=== PATIENT | female | born 1995 | race Two or more races ===

== ENCOUNTER 2025-01-24 13:45 | Inpatient (IN) | payer OTHER ==
[~2025-01-24] VITALS: Ht 167.6 cm; Wt 79.8 kg
[2025-02-09 08:00] VITALS: BP 117/75
[2025-02-09] MEDS ORDERED: PRENATABS FA T1 EACH PO (08:11)
[2025-02-09] MEDS ORDERED: OXYTOCIN 500 ML IV SCH (08:15)
[2025-02-09] MEDS ORDERED: RINGERS SOLUTION,LACTATED 1,000 ML IV SCH (08:15)
[2025-02-09 08:49] LABS: BASO % 0.4 % (0.1-1.2); EOS # 0.05 (0.04-0.54); EOS % 0.4 % (0.7-7.0); LYMPH # 2.60 (1.18-3.74); LYMPH % 22.5 % (19.3-53.1); MEAN PLATELET VOLUME 11.30 fl (9.4-12.4); MONO # 1.12 (0.24-0.82); MONO % 9.7 % (4.7-12.5); NEUT # 7.61 (1.56-6.13); NEUT % 66.1 % (34.0-71.1); RED CELL DISTRIBUTION WIDTH 12.7 % (11.6-14.4)
[2025-02-09 09:12] LABS: INR 0.96
[2025-02-09 09:17] LABS: ALT/SGPT 15.0 U/L (12-78); AST/SGOT 24.0 U/L (15-37); BILIRUBIN TOTAL 0.58 mg/dL (0.3-1.2); BUN CREA RATIO 13.0 (7.0-25.0); CREATININE SERUM 0.53 mg/dL (0.55-1.02); GFR 134.55; GLOBULINA 3.7 G/DL (2.4-3.5); GLUCOSE FASTING 76.0 mg/dL (65-100); OSMOLALITY SERUM 276.0 MOSM/KG (275-295)
[2025-02-09 11:40] VITALS: BP 121/71
[2025-02-09] MEDS ORDERED: MORPHINE SULFATE 4 MG/ML CARTRIDGE IV ONE (15:30)
[2025-02-09 15:38] VITALS: BP 116/50
[2025-02-09] MEDS ORDERED: OXYTOCIN 10 UNITS/ML VIAL ONE (19:36)
[2025-02-09] MEDS ORDERED: ERYTHROMYCIN BASE OPHT 1GM EACH TUBE OP ONE (19:36)
[2025-02-09] MEDS ORDERED: CITRIC ACID/SODIUM CITRATE 30 ML BLIST.PACK PO SCH (19:45)
[2025-02-09] MEDS ORDERED: CEFAZOLIN SODIUM 1,000 MG VIAL IV SCH (19:45)
[2025-02-09] MEDS ORDERED: CARBOPROST TROMETHAMINE 250 MCG/ML AMPUL IM ONE (20:09)
[2025-02-09] MEDS ORDERED: MORPHINE SULFATE 4 MG/ML VIAL IV SCH (21:16)
[2025-02-09] MEDS ORDERED: KETOROLAC TROMETHAMINE 30 MG VIAL IV SCH (21:17)
[2025-02-09] MEDS ORDERED: OXYTOCIN 1,000 ML IV ONE (21:30)
[2025-02-09] MEDS ORDERED: MORPHINE SULFATE 4 MG/ML VIAL IV ONE (22:10)
[2025-02-10 01:58] VITALS: BP 107/64
[2025-02-10] MEDS ORDERED: ACETAMINOPHEN 500 MG GEL..CAP PO SCH (06:00)
[2025-02-10 06:51] LABS: BASO % 0.2 % (0.1-1.2); EOS # 0.01 (0.04-0.54); EOS % 0.1 % (0.7-7.0); LYMPH # 2.56 (1.18-3.74); LYMPH % 14.2 % (19.3-53.1); MEAN PLATELET VOLUME 11.30 fl (9.4-12.4); MONO # 1.87 (0.24-0.82); MONO % 10.4 % (4.7-12.5); NEUT # 13.45 (1.56-6.13); NEUT % 74.4 % (34.0-71.1); RED CELL DISTRIBUTION WIDTH 12.8 % (11.6-14.4)
[2025-02-10 08:00] VITALS: BP 113/74
[2025-02-10] MEDS ORDERED: SIMETHICONE 125 MG CAPSULE PO SCH (09:00)
[2025-02-10] MEDS ORDERED: PNV,CALCIUM 72/IRON/FOLIC ACID 1 TAB TABLET PO SCH (09:00)
[2025-02-10] MEDS ORDERED: GABAPENTIN 300 MG CAPSULE PO SCH (09:00)
[2025-02-10] MEDS ORDERED: DOCUSATE SODIUM 100MG CAP PO SCH (09:00)
[2025-02-10 19:38] VITALS: BP 122/85
[2025-02-11 00:36] VITALS: BP 125/78; O2SAT 100
[2025-02-11 08:00] VITALS: BP 118/77
== END 2025-02-11 16:49 | disposition home or self-care (01) | DRG 788 ==
LOC: OB/GYN 02-05 13:45 → LDR 02-09 07:36 → O/R 02-09 20:22 → OB/GYN 02-09 21:52
PROVIDERS: Obstetrics & Gynecology Gynecology; ADMIT Obstetrics & Gynecology; ATTEND Obstetrics & Gynecology
PROC: 4A1HXCZ Monitoring of Products of Conception, Cardiac Rate, External Approach (ICD-10-PCS; 2025-02-09)
PROC: 10D00Z1 Extraction of Products of Conception, Low, Open Approach (ICD-10-PCS; principal; 2025-02-09 19:15)
DX: O82 Encounter for cesarean delivery without indication (principal); O62.1 Secondary uterine inertia; Z3A.40 40 weeks gestation of pregnancy; Z37.0 Single live birth

== ENCOUNTER 2025-02-01 12:14 | Outpatient (CLI) | payer OTHER | END 2025-02-01 12:57 | disposition home or self-care (01) | LOC: NST 12:14 | PROVIDERS: ATTEND Obstetrics & Gynecology Maternal & Fetal Medicine | DX: Z34.83 Encounter for supervision of other normal pregnancy, third trimester (principal) ==

== ENCOUNTER 2025-02-08 13:26 | Outpatient (CLI) | payer OTHER ==
[2025-02-09] MEDS ORDERED: PRENATABS FA T1 EACH PO (08:11)
== END 2025-02-08 14:28 | disposition home or self-care (01) ==
LOC: NST 13:26
PROVIDERS: ATTEND Obstetrics & Gynecology Gynecology
DX: Z34.83 Encounter for supervision of other normal pregnancy, third trimester (principal)